=== PATIENT | male | born 1950 | race Caucasian/White ===

== ENCOUNTER → 2016-12-07 | Outpatient (CLI) | payer OTHER ==
[~2016-12-07] MED LIST: ALBUAER2 INH; ALFU10TA30 PO; ASPEC81 PO; BND25X PO; CHOLTAB3 PO; HYDR-4079 PO; MOME50SP5; MULT-506 PO; SILD100T PO
--- NOTE | 2016-12-07 16:03 | DIAGNOSTIC IMAGING REPORT ---
LUMBAR SPINE W/O CONTRAST HISTORY: Pain LUMBAR PAIN TECHNIQUE: Multiplanar multisequence MRI of the lumbar spine was performed without the use of contrast. COMPARISON: None. FINDINGS: For the purpose of the report the L5-S1 disc space will be located on axial image 22 of 25. Moderate degenerative disc change throughout the entire lumbar region. Mild disc bulges at virtually all levels based on the sagittal exam. No evidence for bone marrow infiltrative process. L1-L2: Mild broad-based disc bulge. Minimal impact anterior thecal sac. L2-L3: Mild broad-based disc bulge. Mild impact anterior thecal sac. L3-L4: Mild multifactorial narrowing of the spinal canal. Mild broad-based disc bulge. Moderate narrowing of the neuroforamina bilaterally. L4-L5: Moderate multifactorial narrowing of the spinal canal. Moderate narrowing of the neuroforamina bilaterally. L5-S1: Mild broad-based disc bulge. No significant impact upon the thecal sac. Mild narrowing right neuroforamina. IMPRESSION: 1. Moderate degenerative disc change at the entire lumbar region. 2. Mild multifactorial narrowing of the spinal canal at L3-L4 and L4-L5. 3. Mild disc bulge L5-S1. 4. No evidence for major disc herniation or high-grade spinal stenotic change. The above report was generated using voice recognition software. It may contain grammatical, syntax or spelling errors. Electronically signed by: Sedrick Hilliard M.D. 12/07/2016 4:02 PM Dictated Date/Time: 12/07/2016 3:58 PM
== END | disposition home or self-care (01) ==
LOC: C.MRI 14:50
PROVIDERS: ATTEND Physical Medicine & Rehabilitation
DX: M54.5 Low back pain (principal); R53.1 Weakness; M54.31 Sciatica, right side

== ENCOUNTER → 2017-07-26 | Outpatient (CLI) | payer OTHER ==
[~2017-07-26] MED LIST changes: +ALFU10TA2 PO; -ALFU10TA30 PO
[2017-07-26 12:32] LABS: BASO % 0.8 %; BASO ABS # 0.06 K/uL (0-0.2); EOS % 4.8 %; EOS ABS # 0.38 K/uL (0-0.5); HEMATOCRIT 25.5 % (42-52); HEMOGLOBIN 7.7 g/dL (14.0-18.0); IG# 0.02 K/uL (0.00-0.02); LYMPH % 31.2 %; LYMPH ABS # 2.48 K/uL (1.2-3.4); MEAN CELL VOLUME 77.7 fL (80-100); MEAN CORPUSCULAR HEMOGLOBIN 23.5 pg (25-34); MEAN CORPUSCULAR HGB CONC 30.2 g/dl (32-36); MEAN PLATELET VOLUME 8.7 fL (7.4-10.4); MONO % 7.9 %; MONO ABS # 0.63 K/uL (0.11-0.59); NEUT ABS # 4.39 K/uL (1.4-6.5); PLATELET COUNT 408 K/uL (130-400); RED CELL DISTRIBUTION WIDTH CV 17.2 % (11.5-14.5); RED CELL DISTRIBUTION WIDTH SD 49.3 fL (36.4-46.3); WHITE BLOOD COUNT 7.96 K/uL (4.8-10.8)
[2017-07-26 13:09] LABS: ALBUMIN 3.8 gm/dl (3.4-5.0); ALKALINE PHOSPHATASE 86 U/L (45-117); ALT/SGPT 18 U/L (12-78); AST/SGOT 14 U/L (15-37); BLOOD UREA NITROGEN 12 mg/dl (7-18); CARBON DIOXIDE 25 mmol/L (21-32); CREATININE 1.43 mg/dl (0.60-1.40); GLUCOSE 102 mg/dl (70-99); POTASSIUM 3.9 mmol/L (3.5-5.1); SODIUM 139 mmol/L (136-145); TOTAL PROTEIN 7.6 gm/dl (6.4-8.2)
[2017-07-26 13:22] LABS: CHOLESTEROL 139 mg/dl (0-200); LDL CHOLESTEROL CALCULATED 80 mg/dl
== END | disposition home or self-care (01) ==
LOC: C.LAB1850 10:40
PROVIDERS: ATTEND Internal Medicine
DX: R97.20 Elevated prostate specific antigen [PSA] (principal); M50.30 Other cervical disc degeneration, unspecified cervical region; Z11.59 Encounter for screening for other viral diseases; Z86.39 Personal history of other endocrine, nutritional and metabolic disease; F41.9 Anxiety disorder, unspecified; J44.9 Chronic obstructive pulmonary disease, unspecified

== ENCOUNTER → 2017-07-27 | Outpatient (CLI) | payer OTHER ==
[2017-07-27 12:16] LABS: BASO % 0.7 %; BASO ABS # 0.05 K/uL (0-0.2); EOS % 4.3 %; HEMATOCRIT 24.8 % (42-52); HEMOGLOBIN 7.6 g/dL (14.0-18.0); IG# 0.01 K/uL (0.00-0.02); LYMPH % 36.2 %; LYMPH ABS # 2.55 K/uL (1.2-3.4); MEAN CORPUSCULAR HEMOGLOBIN 23.9 pg (25-34); MEAN CORPUSCULAR HGB CONC 30.6 g/dl (32-36); MEAN PLATELET VOLUME 8.5 fL (7.4-10.4); MONO % 7.7 %; MONO ABS # 0.54 K/uL (0.11-0.59); PLATELET COUNT 370 K/uL (130-400); RED CELL DISTRIBUTION WIDTH CV 17.4 % (11.5-14.5); RED CELL DISTRIBUTION WIDTH SD 50.1 fL (36.4-46.3); WHITE BLOOD COUNT 7.05 K/uL (4.8-10.8)
[2017-07-27 12:29] LABS: TRANSFERRIN 328 mg/dl (200-360)
== END | disposition home or self-care (01) ==
LOC: C.LAB1850 11:10
PROVIDERS: ATTEND Internal Medicine
DX: D64.9 Anemia, unspecified (principal)

== ENCOUNTER → 2017-08-03 | Outpatient (CLI) | payer OTHER ==
[2017-08-03 17:03] LABS: HEMATOCRIT 28.3 % (42-52); HEMOGLOBIN 8.5 g/dL (14.0-18.0); MEAN CELL VOLUME 79.7 fL (80-100); MEAN CORPUSCULAR HEMOGLOBIN 23.9 pg (25-34); MEAN PLATELET VOLUME 8.4 fL (7.4-10.4); PLATELET COUNT 327 K/uL (130-400); RED CELL DISTRIBUTION WIDTH CV 19.7 % (11.5-14.5); RED CELL DISTRIBUTION WIDTH SD 56.7 fL (36.4-46.3); WHITE BLOOD COUNT 6.56 K/uL (4.8-10.8)
[2017-08-03 17:09] LABS: BASO % 0.6 %; BASO ABS # 0.04 K/uL (0-0.2); EOS % 5.5 %; EOS ABS # 0.36 K/uL (0-0.5); IG# 0.02 K/uL (0.00-0.02); LYMPH % 33.2 %; LYMPH ABS # 2.18 K/uL (1.2-3.4); MONO % 7.6 %; NEUT % 52.8 %; NEUT ABS # 3.46 K/uL (1.4-6.5)
== END | disposition home or self-care (01) ==
LOC: C.LAB1850 15:08
PROVIDERS: ATTEND Internal Medicine
DX: D64.9 Anemia, unspecified (principal)